=== PATIENT | female | born 1990 | race Hispanic/Latino ===

== ENCOUNTER 2018-04-21 20:47 | Emergency (ER) | payer BC ==
[2018-04-21] MEDS ORDERED: NACL 0.9% 500 ML 500 ML IV ONE (21:06)
[2018-04-21] MEDS ORDERED: DILAUDID IV ONE (21:06)
--- NOTE | 2018-04-21 21:08 | Emergency Department Report ---
ED Abdominal Pain HPI - General Chief Complaint: Abdominal Pain Stated Complaint: ABD PAIN Time Seen by Provider: 04/21/18 21:01 Source: patient, RN notes reviewed Mode of arrival: Stretcher Limitations: Physical Limitation - History of Present Illness Initial Comments: This is a 27-year-old female who is not known to this provider previously, who presents to the ER with a complaint of sudden nontraumatic epigastric and upper quadrant abdominal pain, most prominent on the epigastric region, which started at 7:30 PM, after eating a steak dinner. No fevers, no chills, positive nausea, no vomiting, reports no , reports no DVT or pulmonary embolus risk factors, with simultaneous nontraumatic back pain. Patient developed nausea while in the emergency room, was treated with hydromorphone, which dramatically improved her symptoms. MD Complaint: abdominal pain -: Gradual Location: LUQ, RUQ, epigastric Radiation: none Migration to: other Severity: moderate Quality: cramping Consistency: intermittent Improves With: medication Worsens With: movement Associated Symptoms: nausea - Related Data Previous Rx's Medication Instructions Recorded Last Taken Type Ibuprofen [Motrin] 600 mg PO Q8H PRN #30 tablet 04/22/18 Unknown Rx Ondansetron [Zofran Odt] 4 mg PO Q8HR PRN #20 tab.rapdis 04/22/18 Unknown Rx Allergies Allergy/AdvReac Type Severity Reaction Status Date / Time No Known Allergies Allergy Verified 04/21/18 22:04 ED Review of Systems ROS: Stated complaint: ABD PAIN Other details as noted in HPI Constitutional: malaise. denies: fever Eyes: denies: eye discharge ENT: denies: epistaxis Respiratory: denies: cough Cardiovascular: denies: chest pain, syncope Gastrointestinal: abdominal pain, nausea Genitourinary: denies: dysuria Musculoskeletal: back pain Skin: denies: lesions Neurological: weakness Psychiatric: anxiety ED Past Medical Hx - Medications Home Medications: Home Medications Medication Instructions Recorded Confirmed Last Taken Type Ibuprofen [Motrin] 600 mg PO Q8H PRN #30 tablet 04/22/18 Unknown Rx Ondansetron [Zofran Odt] 4 mg PO Q8HR PRN #20 tab.rapdis 04/22/18 Unknown Rx ED Physical Exam - General Limitations: Physical Limitation General appearance: alert, in distress, obese - Head Head exam: Present: atraumatic, normocephalic - Eye Eye exam: Present: normal appearance, EOMI. Absent: nystagmus - ENT ENT exam: Present: normal exam, normal orophraynx, mucous membranes moist, normal external ear exam - Neck Neck exam: Present: normal inspection, full ROM. Absent: tenderness, meningismus - Respiratory Respiratory exam: Present: normal lung sounds bilaterally. Absent: respiratory distress - Cardiovascular Cardiovascular Exam: Present: regular rate, normal rhythm, normal heart sounds. Absent: bradycardia, tachycardia, irregular rhythm, systolic murmur, diastolic murmur, rubs, gallop - GI/Abdominal GI/Abdominal exam: Present: soft, tenderness, other (there is negative Singh sign. There is epigastric tenderness.). Absent: distended, guarding, rebound, rigid, pulsatile mass - Extremities Exam Extremities exam: Present: normal inspection, full ROM, other (2+ pulses noted in the bilateral upper, lower extremities. Compartments soft. No long bony tenderness. The pelvis is stable.). Absent: pedal edema, joint swelling, calf tenderness - Back Exam Back exam: Present: normal inspection, full ROM. Absent: tenderness, CVA tenderness (R), paraspinal tenderness, vertebral tenderness - Neurological Exam Neurological exam: Present: alert, oriented X3, CN II-XII intact, normal gait, other (Extraocular movements intact. Tongue midline. No facial droop. Facial sensation intact to light touch in the V1, V2, V3 distribution bilaterally. 5 and 5 strength in 4 extremities.. Sensation is intact to light touch in 4 extremities.). Absent: motor sensory deficit - Psychiatric Psychiatric exam: Present: anxious - Skin Skin exam: Present: warm, dry, intact, normal color. Absent: rash ED Course Vital Signs 04/21/18 04/21/18 04/21/18 20:59 21:00 21:02 Temperature 97.7 F Pulse Rate 74 Respiratory 22 Rate Blood Pressure 137/90 137/90 O2 Sat by Pulse 98 99 97 Oximetry 04/21/18 04/21/18 04/21/18 21:15 23:04 23:16 Temperature Pulse Rate Respiratory Rate Blood Pressure 149/86 149/86 149/86 O2 Sat by Pulse 97 99 99 Oximetry 04/21/18 04/21/18 04/21/18 23:30 23:44 23:46 Temperature Pulse Rate Respiratory Rate Blood Pressure 149/86 149/86 149/86 O2 Sat by Pulse 99 100 98 Oximetry 04/22/18 04/22/18 04/22/18 00:00 02:06 02:11 Temperature Pulse Rate 50 L Respiratory Rate Blood Pressure 125/71 125/71 O2 Sat by Pulse 100 Oximetry - Reevaluation(s) Reevaluation #1: 04/22/18 00:56 Differential diagnosis, including but not limited to: Biliary colic, choledocholithiasis, gallstone pancreatitis, renal colic, perforated viscus Assessment and plan: 27-year-old female with epigastric and upper abdominal pain after eating a steak dinner. Initially appeared quite uncomfortable. Improved with hydromorphone. Laboratory studies show nonspecific transaminitis. Right upper quadrant ultrasound shows stones with no evidence of cholecystitis. CT scan of the abdomen and pelvis pending to exclude choledocholithiasis. Urinalysis, presentation is not consistent or suggestive of renal colic or renal infection at this point time. Patient appears improved when compared to initial presentation. Reevaluation #2: 04/22/18 01:52 Patient is reevaluated multiple times by this provider while in the emergency department. Her belly is soft on repeat examination, and CT scan of the abdomen and pelvis does not demonstrate any acute emergent condition at this point in time. She is tolerating liquid feeds. She was counseled to avoid heavy, spicy foods, and she was advised about her incidental transaminitis, and counseled to follow up in outpatient primary care doctor and/or general surgeon. She reports that she feels comfortable for discharge at this point in time, and is reliable to follow-up. ED Medical Decision Making - Lab Data Result diagrams: 04/21/18 22:55 04/21/18 22:10 Vital Signs 04/21/18 04/21/18 04/21/18 20:59 21:00 21:02 Temperature 97.7 F Pulse Rate 74 Respiratory 22 Rate Blood Pressure 137/90 137/90 O2 Sat by Pulse 98 99 97 Oximetry 04/21/18 04/21/18 04/21/18 21:15 23:04 23:16 Temperature Pulse Rate Respiratory Rate Blood Pressure 149/86 149/86 149/86 O2 Sat by Pulse 97 99 99 Oximetry 04/21/18 23:30 Temperature Pulse Rate Respiratory Rate Blood Pressure 149/86 O2 Sat by Pulse 99 Oximetry Lab Results 04/21/18 04/21/18 04/21/18 Range/Units 22:10 22:10 22:55 WBC 8.7 (4.5-11.0) K/mm3 RBC 4.87 (3.65-5.03) M/mm3 Hgb 13.5 (10.1-14.3) gm/dl Hct 39.8 (30.3-42.9) % MCV 82 (79-97) fl MCH 28 (28-32) pg MCHC 34 (30-34) % RDW 13.8 (13.2-15.2) % Plt Count 227 (140-440) K/mm3 Lymph % (Auto) 14.3 (13.4-35.0) % [place] % (Auto) 5.5 (0.0-7.3) % Eos % (Auto) 1.2 (0.0-4.3) % Baso % (Auto) 0.4 (0.0-1.8) % Lymph # 1.2 (1.2-5.4) K/mm3 [place] # 0.5 (0.0-0.8) K/mm3 Eos # 0.1 (0.0-0.4) K/mm3 Baso # 0.0 (0.0-0.1) K/mm3 Seg Neutrophils % 78.6 H (40.0-70.0) % Seg Neutrophils # 6.8 (1.8-7.7) K/mm3 PT (12.2-14.9) Sec. INR (0.87-1.13) APTT (24.2-36.6) Sec. Sodium 138 (137-145) mmol/L Potassium 5.0 (3.6-5.0) mmol/L Chloride 101.8 (98-107) mmol/L Carbon Dioxide 24 (22-30) mmol/L Anion Gap 17 mmol/L BUN 13 (7-17) mg/dL Creatinine 0.9 (0.7-1.2) mg/dL Estimated GFR > 60 ml/min BUN/Creatinine Ratio 14 % Glucose 101 H (65-100) mg/dL Lactic Acid (0.7-2.0) mmol/L Calcium 8.7 (8.4-10.2) mg/dL Magnesium 2.00 (1.7-2.3) mg/dL Total Bilirubin 0.30 (0.1-1.2) mg/dL AST 172 H (5-40) units/L ALT 84 H (7-56) units/L Alkaline Phosphatase 84 (35-129) units/L Total Creatine Kinase 87 (30-135) units/L Troponin T < 0.010 (0.00-0.029) ng/mL Total Protein 6.6 (6.3-8.2) g/dL Albumin 4.1 (3.9-5) g/dL Albumin/Globulin Ratio 1.6 % Lipase 31 (13-60) units/L HCG, Quant < 2 (0-4) mIU/mL Urine Color (Yellow) Urine Turbidity (Clear) Urine pH (5.0-7.0) Ur Specific [place] (1.003-1.030) Urine Protein (Negative) mg/dL Urine Glucose (UA) (Negative) mg/dL Urine Ketones (Negative) mg/dL Urine Blood (Negative) Urine Nitrite (Negative) Urine Bilirubin (Negative) Urine Urobilinogen (<2.0) mg/dL Ur Leukocyte Esterase (Negative) Urine WBC (Auto) (0.0-6.0) /HPF Urine RBC (Auto) (0.0-6.0) /HPF U Epithel Cells (Auto) (0-13.0) /HPF 04/21/18 04/21/18 04/21/18 Range/Units 22:55 22:55 23:02 WBC (4.5-11.0) K/mm3 RBC (3.65-5.03) M/mm3 Hgb (10.1-14.3) gm/dl Hct (30.3-42.9) % MCV (79-97) fl MCH (28-32) pg MCHC (30-34) % RDW (13.2-15.2) % Plt Count (140-440) K/mm3 Lymph % (Auto) (13.4-35.0) % [place] % (Auto) (0.0-7.3) % Eos % (Auto) (0.0-4.3) % Baso % (Auto) (0.0-1.8) % Lymph # (1.2-5.4) K/mm3 [place] # (0.0-0.8) K/mm3 Eos # (0.0-0.4) K/mm3 Baso # (0.0-0.1) K/mm3 Seg Neutrophils % (40.0-70.0) % Seg Neutrophils # (1.8-7.7) K/mm3 PT 13.0 (12.2-14.9) Sec. INR 0.94 (0.87-1.13) APTT 27.9 (24.2-36.6) Sec. Sodium (137-145) mmol/L Potassium (3.6-5.0) mmol/L Chloride (98-107) mmol/L Carbon Dioxide (22-30) mmol/L Anion Gap mmol/L BUN (7-17) mg/dL Creatinine (0.7-1.2) mg/dL Estimated GFR ml/min BUN/Creatinine Ratio % Glucose (65-100) mg/dL Lactic Acid 1.80 (0.7-2.0) mmol/L Calcium (8.4-10.2) mg/dL Magnesium (1.7-2.3) mg/dL Total Bilirubin (0.1-1.2) mg/dL AST (5-40) units/L ALT (7-56) units/L Alkaline Phosphatase (35-129) units/L Total Creatine Kinase (30-135) units/L Troponin T (0.00-0.029) ng/mL Total Protein (6.3-8.2) g/dL Albumin (3.9-5) g/dL Albumin/Globulin Ratio % Lipase (13-60) units/L HCG, Quant (0-4) mIU/mL Urine Color Colorless (Yellow) Urine Turbidity Clear (Clear) Urine pH 7.0 (5.0-7.0) Ur Specific [place] 1.003 (1.003-1.030) Urine Protein <15 mg/dl (Negative) mg/dL Urine Glucose (UA) Neg (Negative) mg/dL Urine Ketones Neg (Negative) mg/dL Urine Blood Neg (Negative) Urine Nitrite Neg (Negative) Urine Bilirubin Neg (Negative) Urine Urobilinogen < 2.0 (<2.0) mg/dL Ur Leukocyte Esterase Neg (Negative) Urine WBC (Auto) < 1.0 (0.0-6.0) /HPF Urine RBC (Auto) 1.0 (0.0-6.0) /HPF U Epithel Cells (Auto) < 1.0 (0-13.0) /HPF Vital Signs 04/21/18 04/21/18 04/21/18 20:59 21:00 21:02 Temperature 97.7 F Pulse Rate 74 Respiratory 22 Rate Blood Pressure 137/90 137/90 O2 Sat by Pulse 98 99 97 Oximetry 04/21/18 04/21/18 04/21/18 21:15 23:04 23:16 Temperature Pulse Rate Respiratory Rate Blood Pressure 149/86 149/86 149/86 O2 Sat by Pulse 97 99 99 Oximetry 04/21/18 23:30 Temperature Pulse Rate Respiratory Rate Blood Pressure 149/86 O2 Sat by Pulse 99 Oximetry - EKG Data -: EKG Interpreted by Mi EKG shows normal: sinus rhythm Rate: bradycardia - EKG Data When compared to previous EKG there are: previous EKG unavailable 04/22/18 00:56 Bradycardia, 54 bpm, normal axis, normal intervals, incomplete right bundle branch block, abnormal EKG, not consistent with ST elevation myocardial infarction. There is no prior for comparison. - Radiology Data Radiology results: report reviewed, image reviewed Patient: RODNEY NEVILLE MR#: [id number] : 1990 Acct:[id number] Age/Sex: 27 / F ADM Date: 04/21/18 Loc: ED Attending Dr: Ordering Physician: CINDY RODRÍGUEZ MD Date of Service: 04/21/18 Procedure(s): US abdomen limited Accession Number(s): [id number] cc: CINDY RODRÍGUEZ MD FINAL REPORT EXAM: US ABDOMEN LIMITED HISTORY: ruq pain TECHNIQUE: Real-time sonography was performed of the right upper quadrant and images are submitted for interpretation. PRIORS: None. FINDINGS: The liver has a normal homogeneous echotexture without focal lesions. There is a 1.9 cm stone and sludge in the gallbladder. There is no gallbladder wall thickening or pericholecystic fluid. Sonographic Singh sign was negative. There is no evidence of biliary dilatation, the common bile duct measures 2 millimeters. The pancreas has a normal echogenicity and appearance. The visualized segments of the abdominal aorta and inferior vena cava appear normal. The right kidney appears normal in size, shape and echogenicity, measur ing 9.8 x 4.5 x 4.6 cm . IMPRESSION: Cholelithiasis and gallbladder sludge. No evidence of acute ch olecystitis. Findings [facility] [address] [place] [address] Cat Scan Report Signed Patient: RODNEY NEVILLE MR#: [id number] : 1990 Acct:[id number] Age/Sex: 27 / F ADM Date: 04/21/18 Loc: ED Attending Dr: Ordering Physician: CINDY RODRÍGUEZ MD Date of Service: 04/22/18 Procedure(s): CT abdomen pelvis w con Accession Number(s): [id number] cc: CINDY RODRÍGUEZ MD FINAL REPORT EXAM: CT A/P w Contrast CLINICAL INDICATIONS: ABD PAIN, R/O GB STONE FINDINGS: Contrast enhanced CT of the abdomen and pelvis was performed following the intravenous administration of 100 cc Omnipaque 350. Data was reformatted into sagittal and coronal planes. The heart is normal in size. There is a left lower lobe subpleural nodule, image 24, 0.6 cm. Abdomen: The gallbladder is not distended. Low-density gallstone is suspected, 1.2 cm. No evidence of acute cholecystitis is seen. There is mild fatty infiltration of the liver without focal hepatic lesion. The spleen, adrenal glands, pancreas are unremarkable. There is no renal or ureteral calculus. There is a fat-containing umbilical hernia. Pelvis: There is a normal appendix. There is no evidence of diverticulitis. There is no adnexal mass. The urinary bladder is within normal l imits. IMPRESSION: ABDOMEN: GALLSTONE PELVIS: NORMAL APPENDIX Transcribed By: LOUANN Dictated By: ELEAZAR GARCIA MD Electronically Authenticated By: ELEAZAR GARCIA MD Signed Date/Time: 04/22/18 0144 Critical care attestation.: If time is entered above; I have spent that time in minutes in the direct care of this critically ill patient, excluding procedure time. ED Disposition Clinical Impression: Biliary colic, High transaminase levels Disposition: DC-01 TO HOME OR SELFCARE Is pt being admited?: No Does the pt Need Aspirin: No Condition: Stable Instructions: Biliary Colic (ED) Additional Instructions: Avoid consumption of alcohol, acetaminophen, Tylenol, heavy, spicy foods. Take pain medications as needed/directed, and adjust diet to include light foods, plenty of water and plenty of fluids. Laboratory studies demonstrated nonspecific elevation in liver function tests, and this should be followed up by her primary care doctor or gps navigation installer or general surgeon within the next 2 weeks. Follow-up with the primary care doctor or general surgeon within the next 7-10 days. Please return to the ER right away with new pain, worsening pain, migration of pain, projectile vomiting, change in mental status, confusion, inability to speak, inability to breathe, new, worsening or different symptoms. Prescriptions: Ibuprofen [Motrin] 600 mg PO Q8H PRN #30 tablet PRN Reason: Pain Ondansetron [Zofran Odt] 4 mg PO Q8HR PRN #20 tab.rapdis PRN Reason: Nausea Referrals: LINN WHITE MD [Staff Physician] - 7-10 days [facility] [Provider Group] - as needed [facility] [Provider Group] - as needed Forms: Work/School Release Form(ED)
[2018-04-21] MEDS ORDERED: ZOFRAN IV ONE (21:10)
[2018-04-21] MEDS ORDERED: DILAUDID ONE (21:10)
[2018-04-21] MEDS ORDERED: ZOFRAN ONE (21:12)
[2018-04-21 23:05] LABS: Basophils % (Auto) 0.4 % (0.0-1.8); Eosinophils # (Auto) 0.1 K/mm3 (0.0-0.4); Eosinophils % (Auto) 1.2 % (0.0-4.3); Hematocrit 39.8 % (30.3-42.9); Hemoglobin 13.5 gm/dl (10.1-14.3); Lymphocytes # (Auto) 1.2 K/mm3 (1.2-5.4); Lymphocytes % (Auto) 14.3 % (13.4-35.0); Mean Corpuscular HGB Conc 34 % (30-34); Mean Corpuscular Volume 82 fl (79-97); Monocytes # (Auto) 0.5 K/mm3 (0.0-0.8); Monocytes % (Auto) 5.5 % (0.0-7.3); Platelet Count 227 K/mm3 (140-440); Red Blood Count 4.87 M/mm3 (3.65-5.03); Red Cell Distribution Width 13.8 % (13.2-15.2)
[2018-04-21 23:15] LABS: INR 0.94 (0.87-1.13)
[2018-04-21 23:16] LABS: Bilirubin,Urine NEG (Negative); Blood,Urine NEG (Negative); Color,Urine Colorless (Yellow); Protein,Urine <15 mg/dL mg/dL (Negative); Urobilinogen,Urine < 2.0 mg/dL (<2.0)
[2018-04-21 23:16] LABS: Partial Thromboplastin Time 27.9 Sec. (24.2-36.6)
[2018-04-21 23:18] LABS: WBC,Urine < 1.0 /HPF (0.0-6.0)
--- NOTE | 2018-04-21 23:20 | Ultrasound Report ---
FINAL REPORT EXAM: US ABDOMEN LIMITED HISTORY: ruq pain TECHNIQUE: Real-time sonography was performed of the right upper quadrant and images are submitted f or interpretation. PRIORS: None. FINDINGS: The liver has a normal homogeneous echotexture without focal lesions. There is a 1.9 cm stone and slu dge in the gallbladder. There is no gallbladder wall thickening or pericholecystic fluid. Sonographic Singh sign was negative. There is no evidence of biliary dilatation, the common bile duct measures 2 millimeters. The pancreas has a normal echogenicity and appearance. The visualized segments of the abdominal aorta and inferior vena cava appear normal. The right kidney appears normal in size, shape and echogenicity, measuring 9.8 x 4.5 x 4.6 cm. IMPRESSION: Cholelithiasis and gallbladder sludge. No evidence of acute cholecystitis.
[2018-04-21 23:28] LABS: Albumin 4.1 g/dL (3.9-5); BUN/Creatinine Ratio 14; Blood Urea Nitrogen 13 mg/dL (7-17); Calcium 8.7 mg/dL (8.4-10.2); Hemolysis Index 172
[2018-04-21 23:57] LABS: Alanine Aminotransferase 84 units/L (7-56)
--- NOTE | 2018-04-22 01:44 | Cat Scan Report ---
FINAL REPORT EXAM: CT A/P w Contrast CLINICAL INDICATIONS: ABD PAIN, R/O GB STONE FINDINGS: Contrast enhanced CT of the abdomen and pelvis was performed following the intravenous administration of 100 cc Omnipaque 350. Data was reformatted into sagittal and coronal planes. The heart is normal in size. There is a left lower lobe subpleural nodule, image 24, 0.6 cm. Abdomen: The gallbladder is not distended. Low-density gallstone is suspected, 1.2 cm. No evidence of acute cholecystitis is seen. There is mild fatty infiltration of the liver without focal hepatic lesion. The spleen, adrenal glan ds, pancreas are unremarkable. There is no renal or ureteral calculus. There is a fat-containing umbilical hernia. Pelvis: There is a normal appendix. There is no evidence of diverticulitis. There is no adnexal mass. The urinary bladder is within normal limits. IMPRESSION: ABDOMEN: GALLSTONE PELVIS: NORMAL APPENDIX
[2018-04-22 02:12] VITALS: BP 125/71
== END 2018-04-22 02:10 | disposition home or self-care (01) ==
LOC: ED 20:47
DX: K80.50 Calculus of bile duct without cholangitis or cholecystitis without obstruction (principal); R74.0 Nonspecific elevation of levels of transaminase and lactic acid dehydrogenase [LDH]
CPT/HCPCS: 36415; 74177; 76705; 80053; 81001; 82140; 82550; 83690; 83735; 84484; 84702; 85025; 85610; 85730; 93005; 93010; 96374; 96375; 99285; J1170; J2405; J7040; Q9967

== ENCOUNTER 2018-04-28 07:02 | Day surgery (SDC) | payer BC ==
[~2018-04-28 07:02] MED LIST: ANCEF/STERILE WATER 2 GM/20 ML 2 GM/20 ML SYRINGE IV NR; LACTATED RINGERS 1,000 ML IV SCH; NACL 0.9% 1000 ML 1,000 ML IV SCH; NEURONTIN PO SCH; VERSED IV NR
--- NOTE | 2018-04-28 07:31 | Short Stay Summary ---
Short Stay Documentation Date of service: 04/28/18 - History H&P: obtained from office - Allergies and Medications Current Medications: Allergies No Known Allergies Allergy (Verified 04/21/18 22:04) Home Medications Medication Instructions Recorded Confirmed Last Taken Type Levothyroxine [Synthroid] 150 mcg PO QAM 04/27/18 04/27/18 Unknown History Active Medications Gabapentin (Neurontin) 600 mg PO PREOP ZULEYKA Cefazolin Sodium (Ancef/Sterile Water 2 Gm/20 Ml) 2 gm in 20 mls @ 80 mls/hr IV PREOP NR; Protocol Stop: 04/28/18 23:59 Sodium Chloride (Nacl 0.9% 1000 Ml) 1,000 mls @ 75 mls/hr IV DIRECT ZULEYKA Lactated Ringer's (Lactated Ringers) 1,000 mls @ 100 mls/hr IV DIRECT ZULEYKA Midazolam HCl (Versed) 2 mg IV PREOP NR Stop: 04/28/18 23:59 - Physical exam General appearance: no acute distress Lungs: Normal air movement Neurological: Normal speech - Brief post op/procedure progress note Date of procedure: 04/28/18 (Dictation:[id number]) Pre-op diagnosis: symptomatic cholelithiasis Post-op diagnosis: same Procedure: lap antonio with IOC Anesthesia: GETA Findings: adhesions noted in midbody of GB against liver. Normal cholangiogram Surgeon: LINN WHITE Estimated blood loss: minimal Pathology: list (gallbladder) Specimen disposition: to lab Condition: stable - Hospital course Hospital course: uneventful - Disposition Condition at discharge: Stable Disposition: DC-01 TO HOME OR SELFCARE Short Stay Discharge Plan Activity: other (no driving until cleared by surgeon) Diet: regular Wound: open to air, keep clean and dry, per your surgeon's advice, other (apply ice to wounds for 10-15min/4-5 times a day. May shower tomorrow. Pat dry wounds. ) Special Instructions: no heavy lifting (for 6 weeks) Additional Instructions: ACTIVITY: NO DRIVING UNTIL CLEARED BY SURGEON. DIET: REGULAR. WOUND CARE: OPEN TO AIR. KEEP CLEAN AND DRY. APPLY ICE CAP TO WOUNDS FOR 10-15 MINS FOR 4-5 TIMES A DAY. MAY SHOWER TOMORROW. PAT DRY WOUNDS. NO HEAVY LIFTING FOR [address]. FOLLOW-UP WITH DR. LINN BARKER IN 14 DAYS. HYDROCODONE 5/325 GIVEN ORALLY. NEXT DOSE: . Follow up with: PRIMARY MD CELSO [Primary Care Provider] - 7 Days LINN WHITE MD [Staff Physician] - 14 Days Forms: Outpatient Surgery DC Inst. Prescriptions: HYDROcodone/ACETAMINOPHEN [[place] 5-325 Tablet] 2 each PO Q6H PRN #40 tablet PRN Reason: Pain , Severe (7-10)
[2018-04-28] MEDS ORDERED: DILAUDID ONE (08:02)
[2018-04-28] MEDS ORDERED: XYLOCAINE MPF 2% ONE (08:02)
[2018-04-28] MEDS ORDERED: ZEMURON IV ONE (08:02)
[2018-04-28] MEDS ORDERED: DIPRIVAN 10 MG/ML IV ONE (08:02)
[2018-04-28] MEDS ORDERED: MARCAINE 0.25% INFILTRATI ONE (08:10)
[2018-04-28] MEDS ORDERED: LIDOCAINE 1.5%/EPI 1:200,000 INFILTRATI ONE (08:59)
[2018-04-28] MEDS ORDERED: XYLOCAINE 1% 20 mL ONE (09:05)
[2018-04-28] MEDS ORDERED: MARCAINE 0.5% INFILTRATI ONE ×2 (09:06→09:58)
[2018-04-28] MEDS ORDERED: DECADRON ONE (09:17)
--- NOTE | 2018-04-28 09:25 | Anesthesia Day of Surgery ---
Anesthesia Day of Surgery - Day of Surgery Patient Examined: Yes Patient H&P Reviewed: Yes Patient is NPO: Yes
[2018-04-28] MEDS ORDERED: DILAUDID IV PRN (09:26)
--- NOTE | 2018-04-28 09:26 | Anesthesia Consultation ---
Anesthesia Consult and Med Hx Date of service: 04/28/18 - Airway Anesthetic Teeth Evaluation: Good ROM Head & Neck: Adequate Mental/Hyoid Distance: Adequate Mallampati Class: Class III Intubation Access Assessment: Possibly Difficult - Pulmonary Exam CTA: Yes - Cardiac Exam Cardiac Exam: RRR - Pre-Operative Health Status ASA Pre-Surgery Classification: ASA3 Proposed Anesthetic Plan: General - Pulmonary Hx Smoking: No Hx Sleep Apnea: No (ISELA PRE SCREEN LOW RISK.) - Cardiovascular System Hx Hypertension: Yes (WITH PREG ONLY- RETURNING TO NORMAL RANGE) - Endocrine Hx Hypothyroidism: Yes (ON DAILY MEDS) - Hematic Hx Anemia: Yes (WITH PREG ONLY) - Other Systems Hx Cancer: No
[2018-04-28] MEDS ORDERED: ROBINUL ONE (09:30)
[2018-04-28] MEDS ORDERED: BLOXIVERZ ONE (09:30)
[2018-04-28] MEDS ORDERED: SUBLIMAZE ONE ×2 (09:37→10:48)
[2018-04-28] MEDS ORDERED: OMNIPAQUE 300 MG/50 ML (CATH LAB) IV ONE ×2 (09:58)
[2018-04-28] MEDS ORDERED: XYLOCAINE 1%/ EPI 1:100,000 INFILTRATI ONE (09:58)
[2018-04-28] MEDS ORDERED: ZOFRAN IV PRN (11:00)
[2018-04-28] MEDS ORDERED: NORCO 5/325 PO PRN (12:05)
--- NOTE | 2018-04-28 13:11 | Fluoroscopy Report ---
FLUOROSCOPIC CHOLANGIOGRAM OPERATIVE INDICATION: Symptomatic cholelithiasis. COMPARISON: Recent abdominal imaging. IMAGES/CINE CLIPS: 3 FINDINGS: Intraoperative fluoroscopic guidance provided for Dr. Lopez during laparoscopic cholecystectomy with intraoperative cholangiogram. 3 submitted images. Alterations Sewer image demonstrates possible extravasated or extrinsic irregular contrast-like density about the zuleyma hepatis region. Subsequent injection images demonstrate opacified common bile duct without suspicious filling defects. CBD caliber estimated about 5 mm. Duodenal opacification also noted. CONCLUSION: Intraoperative fluoroscopic guidance provided, as described. Please also correlate with procedure notes. Thank you for the opportunity to participate in this patient's care.
--- NOTE | 2018-04-28 14:41 | Post Anesthesia Evaluation ---
- Post Anesthesia Evaluation Patient Participated: Yes Airway Patent: Yes Stable Respiratory Function: Yes Nausea/Vomiting: No Temp > 96.8F: Yes Pain Manageable: Yes Adequeate Hydration: Yes Anesthesia Complications: No
--- NOTE | 2018-04-28 15:31 | Operative Report ---
PREOPERATIVE DIAGNOSIS: Symptomatic cholelithiasis. POSTOPERATIVE DIAGNOSIS: Symptomatic cholelithiasis. PROCEDURE: Laparoscopic cholecystectomy with intraoperative cholangiogram. ATTENDING PHYSICIAN: Waylon Lopez MD ANESTHESIA: General. ESTIMATED BLOOD LOSS: Minimal. FLUIDS: 900 mL. FINDINGS: Relatively normal appearing gallbladder with moderate size stone near the neck. Mild adhesions were noted between the omentum and the gallbladder. More dense adhesions were noted between the gallbladder and the liver bed. SPECIMENS: Gallbladder. DRAINS: None. COMPLICATIONS: None. DISPOSITION: Stable transport to Recovery Room. INDICATIONS: This is a 27-year-old female who had a sudden onset of very severe epigastric pain, for which she was sent to general surgery for evaluation. She continued to have subsequent episodes of right upper quadrant pain associated with nausea and radiation to the back. Ultrasound did show a moderate sized stone. The patient assessed to have symptomatic cholelithiasis in need of laparoscopic cholecystectomy. Procedure, risks, benefits were explained to the patient. Risks included but were not limited to infection, bleeding, pain, injury to surrounding structures, possible post-cholecystectomy syndrome, possible need for open procedure, possible need for further procedures in the future, etc. The patient understood and consented. DESCRIPTION OF PROCEDURE: The patient was brought to the operating room and placed on the table in supine position. After adequate general anesthesia was established, the patient was prepped and draped in usual sterile fashion. Antibiotics had been administered prior to start of the case. SCDs were in place. Time-out was called. I began by placing a Veress needle in the left upper quadrant. I was able to insufflate the abdomen on the first attempt. Using the Optiview technique, I placed a 5 mm port was placed in the right lateral aspect of the abdominal wall. Please note that all port and Veress needle sites had been injected with 1% lidocaine and 0.5% Marcaine mix. I entered the peritoneal cavity safely. I examined the area where the Veress needle was inserted. There was no injury to the underlying structures. The Veress needle was removed. I then placed a 10 mm port at the umbilicus. I used one of the natural creases at the umbilicus to make the incision and placed the port. This was done under direct vision. Two more 5 mm ports were placed parallel to the subcostal margin. Began by elevating the gallbladder, I took down the adhesions to the omentum and then dissected out the cystic duct and cystic artery in the critical view. One clip was placed proximally on the cystic duct in relation to the gallbladder. A small opening was made in the cystic duct. Cholangiogram catheter was inserted and then cholangiogram was performed. Prior to injecting any dye, we saw on the fluoroscopy that there was a darkened area over the area of where we would be looking for the common duct. We did not see any sponge or anything that could account for this. We proceeded and then injected the dye. We saw a normal common duct. No clear evidence of any filling defects. We had visualization of both the left and right hepatic ducts. Cholangiogram catheter was removed. Three more clips were placed distally on the cystic duct and cystic duct was divided with the Harmonic scalpel. As for the irregular area, again please note that was present prior to injecting any dye. In discussions with the Radiology Staff afterwards, we think that perhaps when the catheter was initially flushed and adjusted, which we thought was with saline, perhaps there was some dye in there, which would make sense in account for the small amount of contrast appearing discoloration prior to us injecting the known dye. Therefore, this is not a duct injury. This is merely dye that was in the vicinity that we thought was saline. The cystic duct appeared to be of sufficient length prior to placing the 3 clips and I made sure that we clearly were over the duct and not tenting up the common duct. Cystic artery was divided with the Harmonic scalpel and then the gallbladder was taken off the bed with the Harmonic scalpel. As we got to the mid body, the adhesions/attachment to the bed became much thicker and much more difficult to dissect through. I think this may be evidence that she had had some mild inflammation in the past from previous attacks and this accounts for the adhesions, we were able to successfully get the gallbladder off intact from the gallbladder bed and then placed in the EndoCatch bag. We examined the bed. There was no evidence of any active bleeding. We placed a Ray-Maria D in the abdomen to soak up any small amount of blood that was there to make sure there was no oozing or anything. We did not see anything. However, after we had removed the gallbladder from the abdomen and we rechecked the area, there did seem to be a small accumulation, but again we did not see anything that looked as though it was actively bleeding. As a precaution, I covered the entire area with Bee. We removed the EndoCatch bag from the umbilical port site. I had to extend the incision of the fascia little bit in order to get the gallbladder out as we are applying tension on the EndoCatch bag, it did break; however, the gallbladder remained intact. The stone that was in the gallbladder was preventing the gallbladder from being removed from the fascial opening. Once we made an additional opening in the fascia, then the gallbladder came out intact. There was no evidence of any infection, inflammation, so I think her risk of infection is very low. We then reexamined the abdominal area at this point is when we had administered the Bee, removed the ports under direct vision. There was no bleeding. Please note that originally when we started the case and made the incisions, the patient did have some oozing that was unexpected. In talking to the after the case, the patient had been on ibuprofen, which I was unaware of. I think this account for some mild oozing. As a precaution, we did not give any Toradol at the end of the case. I closed the umbilical port site fascia with a [id number] stitch using 0 Vicryl. We took care to elevate the fascia to prevent injury to the underlying structures. The skin sites were closed with 4-0 Monocryl subcuticular stitches. Skin was clean and dry. Dermabond was placed. The patient tolerated procedure well. There were no complications. All counts were correct at the end of the case. I spoke with at the end of the case, he was very appreciative of our help. JOB# [id number] KAT/MAYA
[2018-04-28 19:17] VITALS: BP 139/93
== END 2018-04-28 13:00 | disposition home or self-care (01) ==
LOC: OR 07:02
PROVIDERS: ATTEND Surgery
DX: K80.10 Calculus of gallbladder with chronic cholecystitis without obstruction (principal); I10 Essential (primary) hypertension; F41.9 Anxiety disorder, unspecified; F32.9 Major depressive disorder, single episode, unspecified; G43.909 Migraine, unspecified, not intractable, without status migrainosus; E03.9 Hypothyroidism, unspecified; D64.9 Anemia, unspecified; E66.01 Morbid (severe) obesity due to excess calories; Z68.33 Body mass index [BMI] 33.0-33.9, adult; Z79.899 Other long term (current) drug therapy; Z98.890 Other specified postprocedural states
CPT/HCPCS: 47563; 74300; 81025; 88304; J0690; J1100; J1170; J2250; J2405; J2704; J2710; J3010; J7120; Q9967